=== PATIENT | female | born 2005 | race Caucasian/White ===

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

== ENCOUNTER 2024-07-23 22:04 | Emergency (ER) | payer MEDICAID, SELFPAY ==
[2024-07-23] VITALS (8 sets, daily range): BP systolic 104–129; BP diastolic 69–75; PULSE 80–102; RESP 16–25; TEMP 36.6–36.8; O2SAT 95–98
--- NOTE | 2024-07-23 22:10 | ED.GENADUL_ITS ---
Discharge Plan Disposition Patient Disposition: Home Condition: Stable Discharge Details Clinical Impression: Allergic reaction Primary Care Provider: Shiva Bailey ED Provider: Cate Reynolds Home Meds and New Rx's Prescriptions: New famotidine [Pepcid] 20 mg tablet 20 mg PO DAILY 7 Days Qty: 20 0RF Rx Instructions: Take 1 tablet daily by mouth for the next 7 days prednisone 20 mg tablet 40 mg PO DAILY 5 Days Qty: 10 0RF Rx Instructions: Take 2 tablets by mouth daily for the next 5 days No Action multivitamin Tablet 1 tab PO DAILY ibuprofen [Advil Liqui-Gel] 200 MG capsule 200 mg PO PRN cholecalciferol (vitamin D3) [Vitamin D3] 1,000 UNIT capsule 1,000 unit PO DAILY Qty: 30 melatonin 5 mg Tablet 5 mg PO HS PRN trazodone 50 mg tablet 75 mg PO HS rizatriptan 5 mg tablet,disintegrating 5 mg PO Q4H MDD 2 tabs PRN Patient Comments: DISSOLVE 1 TABLET IN MOUTH NEED FOR HEADACHE. MAY REPEAT EVERY 2 HOURS FOR 2 DOSES (30 DAY SUPPLY) bupropion HCl 150 mg tablet extended release 24 hr 150 mg PO DAILY Patient Comments: TAKE ONE TABLET BY MOUTH ONCE DAILY Discharge Instructions Instructions: Allergic Reaction ED Additional Instructions: At this time it is unknown what you had an allergic reaction to. Please take the Pepcid once a day for the next 7 days. Take the prednisone as prescribed for the next 5 days. If itching or hives recur please give 1 or 2 tablets of Benadryl every 6-8 hours. Return to the ER if hives worsen, shortness of breath, trouble swallowing, trouble breathing, facial swelling, runny nose or feeling like your throat is closing. Follow up with primary care provider in 3-5 days. Return to ED sooner if any worsening or concerns. Thank you for allowing us to care for you today. Referrals: Shiva Bailey [Primary Care Provider] - 3 days HPI General Mode of arrival: ambulatory . Date/Time Provider Initiated Documentation: 07/23/24 22:04 . Limitations to Documentation: no limitations . Information obtained by: patient, family, RN notes reviewed and old records reviewed . HPI Narrative: 19-year-old female presents to the ER with a chief complaint of urticaria and itching which occurred approximately 20 to 30 minutes prior to arrival after eating some chicken wings and pizza. No known food allergies. Mom did give 2 tablets of 25 mg of Benadryl prior to arrival. Patient is speaking in full sentences, no stridor no wheezing noted. She does have a past medical history of anxiety, insomnia and depression and essential tremor. Related Data Home Medications ?Medication ?Instructions ?Recorded ?Confirmed ibuprofen 200 mg capsule (Advil 200 mg PO PRN 05/27/13 07/23/24 Liqui-Gel) cholecalciferol (vitamin D3) 25 1,000 unit PO DAILY #30 caps 04/09/17 07/23/24 mcg (1,000 unit) capsule (Vitamin D3) bupropion HCl 150 mg 24 hr tablet, 150 mg PO DAILY 04/09/22 07/23/24 extended release melatonin 5 mg tablet 5 mg PO HS PRN 04/09/22 07/23/24 rizatriptan 5 mg disintegrating 5 mg PO Q4H PRN 04/09/22 07/23/24 tablet trazodone 50 mg tablet 75 mg PO HS 04/09/22 07/23/24 multivitamin 1 tab PO DAILY 06/13/22 07/23/24 famotidine 20 mg tablet (Pepcid) 20 mg PO DAILY Allergy 7 days #20 07/23/24 tabs prednisone 20 mg tablet 40 mg (2 x 20 mg) PO DAILY 07/23/24 Allergic reaction 5 days #10 tabs Previous Rx's ?Medication ?Instructions ?Recorded famotidine 20 mg tablet (Pepcid) 20 mg PO DAILY Allergy 7 days #20 07/23/24 tabs prednisone 20 mg tablet 40 mg (2 x 20 mg) PO DAILY 07/23/24 Allergic reaction 5 days #10 tabs Allergies Allergy/AdvReac Type Severity Reaction Status Date / Time No Known Allergies Allergy Verified 07/23/24 22:10 General KRISTIN: 3 Review of Systems All systems reviewed & are unremarkable except as noted in HPI and below ENT Ears, Nose, Mouth, and Throat: Denies throat swelling and Denies tongue swelling Respiratory Respiratory: Denies wheezing Integumentary/Breasts Skin/Breast: Reports as per HPI, Reports pruritus and Reports rash Allergic/Immunologic Allergic/Immunologic: Reports as per HPI, Reports urticaria, Denies throat swelling, Denies tongue swelling and Denies wheezing Exam Narrative Exam Narrative: Constitutional: Alert and oriented x3. Appears stated age. Normal body habitus. Speaking in full sentences. Appears anxious, has full body rash. Head: Normocephalic, no trauma. Eyes: Pupils PERRL, Red reflex noted, EOM's intact. Eyelids symmetrical without lesions, discharge, or swelling. ENT: Bilateral TM's WNL, External ear normal to inspection, no mastoid TTP, swelling, or erythema, Nasal turbinates WNL, no nasal discharge. Normal dentition, Posterior pharynx WNL, no exudate. Chest: RRR, Normal S1, S2, distal pulses intact. Resp: Lungs clear to auscultation bilaterally, no wheezes, rales, or rhonchi. No stridor noted. Abdomen: Soft, non-distended, Normoactive bowel sounds all 4 quads. Musculoskeletal: Normal gait, Moves all 4 extremities without difficulty. Skin: Urticaria and hives noted to anterior torso arms and back, capillary refill less than 2 sec. Neurologic: Cranial nerves II-XII intact. Alert and oriented x 3. Motor: No deficits noted. Sensory: Intact bilaterally all 4 extremities. Hematologic/Lymphatic: No ecchymosis, no lymphadenopathy. Skin Rashes: rashes noted hives diffuse multiple locations Trauma: no lacerations or abrasions Wounds: no wounds Hair: normal Nails: normal Medical Decision Making 19-year-old female presents to the ER with a chief complaint of urticaria and itching which occurred approximately 20 to 30 minutes prior to arrival after eating some chicken wings and pizza. No known food allergies. Mom did give 2 tablets of 25 mg of Benadryl prior to arrival. Patient is speaking in full sentences, no stridor no wheezing noted. She does have a past medical history of anxiety, insomnia and depression and essential tremor. Patient does have generalized hives and urticaria to her anterior chest back arms. No stridor noted no wheezing auscultated speaking in full sentences. Patient received 50 mg of Benadryl p.o. prior to arrival, will give IV methylprednisolone 125 mg, 20 mg of Pepcid IV and 1 L normal saline. 2245: On patient reevaluation her hives and itching have significantly reduced after the above medications. Patient was at home when this occurred denies any new soaps. Mom states that she went and took a shower and it sat down and had some chicken wings when this occurred. I did instruct them to pay attention over the next few days to her return to the ER if any worsening. Will give 3 days of prednisone and will give Pepcid for the next week. I did instruct mom to give Benadryl 1 or 2 tablets every 6-8 hours as needed for itching or if the hives return. They verbalized understanding. This text was generated using [employer] dictation system, please disregard any oddities of phrase or misspellings. Quality:SDOH Health Related Social Needs: No Data to Display PFSH All Active Problems (Updated 07/23/24 @ 22:47 by Cate Reynolds NP) Allergic reaction (Acute) Vaginal pain (Acute) Medical History Essential tremor (09/23/17) neuro eval 09/06 Depression Anxiety Insomnia Family History Mother Personal history of malignant neoplasm breast Mental disorder anxiety/depression ADHD (attention deficit hyperactivity disorder), combined type Father Alcohol abuse Healthy adult Tremor Other Diabetes MGF. mat uncle, Heart disease MGF, MGM Mental disorder MGM-depression Myocardial infarction MGF, MGM Asthma MGM Maternal Uncle Tremor MU Social History Smoking/Tobacco Use Status: Never Smoking risk assessment performed?: Yes Alcohol Intake: never Substance use type: marijuana Housing: house Do you feel safe in your relationship?: Yes Female Reproductive History Menstrual Age of Menarche: 10 Duration of menses: 3-5 days control method: none History History 0 Para Hx # Term Pregnancies Multiple births Hx # Pregnancies Ectopic pregnancies AB induced Hx Number of Living Children AB spontaneous
[2024-07-23] MEDS: methylPREDNISolone SUCC 125 MG VIAL IVP (22:21)
[2024-07-23] MEDS: Normal Saline 500 ML 1000 ML IV (22:21)
[2024-07-23] MEDS: Famotidine 20 MG/2 ML VIAL IVP (22:21)
== END 2024-07-23 23:18 | disposition home or self-care (01) ==
PROVIDERS: Emergency Provider Registered Nurse Emergency; PCP Physician Assistant
DX: T78.40XA Allergy, unspecified, initial encounter (principal)
CPT/HCPCS: 96361; 96374; 96375; 99284; 99283; J2919

== ENCOUNTER 2024-09-17 17:42 | Emergency (ER) | payer MEDICAID, SELFPAY ==
[2024-09-17] VITALS (16 sets, daily range): BP systolic 89–112; BP diastolic 48–72; PULSE 84–106; RESP 13–23; TEMP 35.9; O2SAT 93–100
--- NOTE | 2024-09-17 18:11 | ED.GENADUL_ITS ---
Discharge Plan Disposition Patient Disposition: Home Condition: Stable Discharge Details Clinical Impression: Anaphylactic reaction Primary Care Provider: Shiva Bailey ED Provider: Marcia Vázquez Home Meds and New Rx's Prescriptions: New epinephrine [EpiPen] 0.3 mg/0.3 mL auto-injector 0.3 mg IM Q5-15M PRNQty: 2 0RF Rx Instructions: do not exceed 3 doses per episode No Action multivitamin Tablet 1 tab PO DAILY ibuprofen [Advil Liqui-Gel] 200 MG capsule 200 mg PO PRN cholecalciferol (vitamin D3) [Vitamin D3] 1,000 UNIT capsule 1,000 unit PO DAILY Qty: 30 melatonin 5 mg Tablet 5 mg PO HS PRN trazodone 50 mg tablet 75 mg PO HS rizatriptan 5 mg tablet,disintegrating 5 mg PO Q4H MDD 2 tabs PRN Patient Comments: DISSOLVE 1 TABLET IN MOUTH NEED FOR HEADACHE. MAY REPEAT EVERY 2 HOURS FOR 2 DOSES (30 DAY SUPPLY) bupropion HCl 150 mg tablet extended release 24 hr 150 mg PO DAILY Patient Comments: TAKE ONE TABLET BY MOUTH ONCE DAILY Discharge Instructions Instructions: Anaphylaxis Additional Instructions: You were seen in the emergency department today for evaluation of an anaphylactic reaction. This is a form of severe allergic reaction that involves 2 or more organ systems. For example, today you had involvement of your skin (hives), as well as your GI tract (nausea and vomiting). You also have low blood pressure and dizziness, all of which is quite concerning. In our department you had a full physical examination performed, and received medications to reverse your anaphylactic reaction. These included epinephrine, Benadryl, a steroid, medications for nausea and IV fluids. We were able to improve your blood pressure, and reverse your reaction, and you were monitored in our department to ensure that your symptoms did not recur. Unfortunately, we are not able to identify definitively what caused your reaction tonight, though it may have been an ingredient in the hot wings that you ate. You did have another episode of nausea and vomiting and dizziness when your epinephrine was delivered. It is possible that this could have occurred in part because of that medication, though you also had the symptoms prior to its administration, and I am concerned that the symptoms represent a component of your anaphylactic reaction. This does not prevent you from using epinephrine in the future if you have another anaphylactic reaction. In fact, I would residential counselor you highly to use this medication if you ever develop hives and shortness of breath, or hives and vomiting again, as this medication can reverse an allergic/anaphylactic reaction and save your life. If you use epinephrine, you need to be evaluated at a hospital, this medication is designed to buy you time to get to help. You can also use Benadryl if you are not having difficulty swallowing. Your primary care provider needs to place a referral for you to be seen by an washerette machine operator for further workup and management of this event. Please follow-up with your primary care provider in the next few days to discuss this visit and any symptoms that change, worsen, or persist. Thank you for allowing us to be part of your care. HPI General Mode of arrival: ambulatory . Date/Time Provider Initiated Documentation: 09/17/24 18:01 . Limitations to Documentation: no limitations . Information obtained by: patient, family and old records reviewed . HPI Narrative: This is a 19-year-old female patient with a past medical history notable for 1 episode of allergic reaction to an unknown source in the past, presenting for evaluation of anaphylaxis. The patient reports that approximately 1 hour prior to arrival, she started to feel some itchiness, developed hives over her back and upper extremities. She states that she ate hot wings tonight, which were from a place that she has eaten in the past, though she does state that they taste different. She reports that she has not had any other new exposures such as soaps, lotions, perfumes, etc. She states that she is not experiencing shortness of breath, wheezing, or throat swelling. However, she feels very dizzy and appeared pale, with some cyanosis tingeing of the lips, and was noted to be hypotensive in triage and had an episode of vomiting. [place]. Prior to this event the patient was in her normal state of health. She did receive 50 mg of p.o. Benadryl and 20 mg of p.o. famotidine prior to arrival. Does not have an EpiPen. Related Data Home Medications ?Medication ?Instructions ?Recorded ?Confirmed ibuprofen 200 mg capsule (Advil 200 mg PO PRN 05/27/13 09/17/24 Liqui-Gel) cholecalciferol (vitamin D3) 25 1,000 unit PO DAILY #30 caps 04/09/17 09/17/24 mcg (1,000 unit) capsule (Vitamin D3) bupropion HCl 150 mg 24 hr tablet, 150 mg PO DAILY 04/09/22 09/17/24 extended release melatonin 5 mg tablet 5 mg PO HS PRN 04/09/22 09/17/24 rizatriptan 5 mg disintegrating 5 mg PO Q4H PRN 04/09/22 09/17/24 tablet trazodone 50 mg tablet 75 mg PO HS 04/09/22 09/17/24 multivitamin 1 tab PO DAILY 06/13/22 09/17/24 epinephrine 0.3 mg/0.3 mL 0.3 mg (0.3 mL) IM Q5-15M PRN #2 ea 09/17/24 injection, auto-injector (EpiPen) Previous Rx's ?Medication ?Instructions ?Recorded epinephrine 0.3 mg/0.3 mL 0.3 mg (0.3 mL) IM Q5-15M PRN #2 ea 09/17/24 injection, auto-injector (EpiPen) Allergies Allergy/AdvReac Type Severity Reaction Status Date / Time No Known Allergies Allergy Verified 09/17/24 18:01 General Stated Complaint: Allergic KRISTIN: 3 Exam Narrative Exam Narrative: Gen: Awake and alert, appears acutely unwell HEENT: Non-icteric sclera, mild cyanosis appreciated of the lips, pale face. Posterior pharynx without edema, erythema or swelling. Neck: Supple Lungs: No apparent respiratory distress, normal respiratory effort. The patient has no wheezing, rhonchi, rales, or stridor, no hypoxia. CV: Blood pressure slightly improved with supine positioning, strong distal pulses at this time. Heart with regular rate and rhythm Abdomen: Non-distended, soft, nontender MSK: Moves 4 extremities without apparent limitation in ROM Skin: Urticaria/hives appreciated over her back Neuro: No obvious focal deficits or facial asymmetry. Speaks in full, clear sentences. Psych: Appropriate for situation. Course Vital Signs Vital signs: Vital Signs Temperature 35.9 C L 09/17/24 17:57 Pulse 100 H 09/17/24 17:57 Respiratory Rate 20 09/17/24 17:57 Blood Pressure 112/65 09/17/24 17:57 Pulse Oximetry 96 09/17/24 17:57 Temperature 35.9 C L 09/17/24 17:57 Pulse 100 H 09/17/24 17:57 Respiratory Rate 20 09/17/24 17:57 Blood Pressure 112/65 09/17/24 17:57 Blood Pressure Position Sitting 09/17/24 17:57 Pulse Oximetry 96 09/17/24 17:57 Oxygen Delivery Method Room Air 09/17/24 17:57 Oxygen Flow Rate 0 09/17/24 17:57 Medical Decision Making This is a 19-year-old female patient presenting for evaluation of hives, vomiting, and hypotension with dizziness. My differential includes but is not limited to anaphylaxis, though the specific allergen is not known. Considered anaphylactic shock, given the low blood pressure. Considered gastritis and gastroenteritis/food poisoning given the onset after eating. The hot wings would be an unlikely source for condition such as scombroid. Considered metabolic electrolyte derangements, kidney injury, dehydration. No chest pain to suggest ACS, arrhythmia less likely given the regular heart rate at this time. Given the patient meets anaphylactic criteria, we will provide her with a dose of intramuscular epinephrine, intravenous Benadryl and Solu-Medrol. I will also provide her with a liter of IV fluids for her hypotension, and Zofran for nausea. The patient is protecting her airway at this time, and is mentating appropriately. We will obtain basic labs to include CBC, CMP, magnesium. The patient will be observed in this emergency department. - I independently interpreted the laboratory studies, which show no significant leukocytosis, anemia, or thrombocytopenia. The chemistry panel is without evidence of electrolyte abnormality, kidney dysfunction, or liver injury. The patient did have a subsequent episode of vomiting during epinephrine administration, but her symptoms gradually resolved. She had no further hives on my reassessment, never developed any shortness of breath or throat swelling, and her nausea subsided. Her blood pressure normalized and her dizziness reso lved after fluids, and she was able to tolerate oral intake. The patient was observed here in the emergency department for approximately 4 hours to ensure that she did not have return of symptoms. We had an extended discussion regarding recognition of anaphylaxis, and I provided her with a prescription for EpiPen's to use in the event of another reaction. She will reach out to her primary care provider to schedule a follow-up visit and for allergy testing referral. At this time, the patient has had a full medical evaluation and is safe for discharge to home. They are hemodynamically stable, ambulatory, and tolerating PO. They are understanding of the follow-up plan and return precautions. They left our facility without incident. Marcia Vázquez MD Medical Records Medical records reviewed: Yes I reviewed the patient's medical records. Lab Data Lab results reviewed: Yes I reviewed the patient's lab results. Quality:SDOH Health Related Social Needs: No Data to Display PFSH All Active Problems (Updated 09/17/24 @ 21:28 by Marcia Vázquez MD) Anaphylactic reaction (Acute) Vaginal pain (Acute) Medical History Essential tremor (09/23/17) neuro eval 09/06 Depression Anxiety Insomnia Family History Mother Personal history of malignant neoplasm breast Mental disorder anxiety/depression ADHD (attention deficit hyperactivity disorder), combined type Father Alcohol abuse Healthy adult Tremor Other Diabetes MGF. mat uncle, Heart disease MGF, MGM Mental disorder MGM-depression Myocardial infarction MGF, MGM Asthma MGM Maternal Uncle Tremor MU Social History Smoking/Tobacco Use Status: Never Smoking risk assessment performed?: Yes Alcohol Intake: never Substance use type: marijuana Housing: house Do you feel safe in your relationship?: Yes Female Reproductive History Menstrual Age of Menarche: 10 Duration of menses: 3-5 days control method: none History History 0 Para Hx # Term Pregnancies Multiple births Hx # Pregnancies Ectopic pregnancies AB induced Hx Number of Living Children AB spontaneous
[2024-09-17 18:19] LABS: Abs Immature Grans 0.03 10^3/uL (0.0-0.06); Absolute Basophil Count 0.03 10^3/uL (0.0-0.2); Absolute Eosinophil Count 0.03 10^3/uL (0.0-0.7); Absolute Lymphocyte Count 2.11 10^3/uL (1.2-3.4); Absolute Monocyte Count 0.36 10^3/uL (0.1-0.8); Absolute Neutrophil Count 2.99 10^3/uL (1.2-6.7); Basophils % 0.5 %; Eosinophils % 0.5 %; HCT 48.9 % (36.0-46.0); Immature Grans % 0.5 %; MCH 28.1 pg (27.0-33.0); MCHC 32.7 % (32.0-36.0); MCV 86 fL (80-95); Monocytes % 6.5 %; RDW 11.9 % (11.7-14.6); RDW-SD 37.2 fL; WBC 5.55 10^3/uL (4.4-10.8)
[2024-09-17] MEDS: Ondansetron 4 MG/2 ML VIAL IVP (18:37)
[2024-09-17] MEDS: diphenhydrAMINE 50 MG/ML VIAL IVP (18:37)
[2024-09-17] MEDS: methylPREDNISolone SUCC 125 MG VIAL IVP (18:38)
[2024-09-17] MEDS: EPINEPHrine 1 MG/ML AMP pres-free 0.3 MG SC (18:38)
[2024-09-17] MEDS: Lactated Ringers 1,000 ML 1000 ML IV (18:38)
[2024-09-17 18:41] LABS: ALT 50 U/L (14-59); AST 30 U/L (15-37); Albumin 4.1 g/dL (3.4-5.0); Alkaline Phosphatase 117 U/L (46-116); Anion Gap 11.2 mmol/L (3-11); BUN 14 mg/dL (7-18); Bilirubin, Total 0.3 mg/dL (0.2-1.0); CO2 25.8 mmol/L (21.0-32.0); CREATININE 1.1 mg/dL (0.55-1.02); Calcium 9.1 mg/dL (8.5-10.1); Chloride 103 mmol/L (98-107); Diff Comment PLT Morph Reviewed; Estimated GFR 73.31 (mL/min/1.73m2); Glucose 108 mg/dL (74-106); Potassium 3.7 mmol/L (3.5-5.1); RBC Morphology Normal; Sodium 140 mmol/L (136-145); Total Protein 7.8 g/dL (6.4-8.2)
[2024-09-17] MEDS: Ibuprofen 600 MG TAB PO (19:34)
[2024-09-17] MEDS: Acetaminophen 500 MG TAB 1000 MG PO (19:34)
== END 2024-09-17 22:08 | disposition home or self-care (01) ==
PROVIDERS: Emergency Provider Emergency Medicine; PCP Physician Assistant
DX: T78.09XA Anaphylactic reaction due to other food products, initial encounter (principal)
CPT/HCPCS: 80053; 96361; 96374; 96375; 99284; 83735; 85025; J0171; J1200; J2405; J2919